=== PATIENT | male | born 1965 | race Caucasian/White ===

== ENCOUNTER 2017-03-19 13:58 | Emergency (ER) | payer OTHER ==
[~2017-03-19] VITALS: Ht 170.2 cm; Wt 81.8 kg
--- NOTE | 2017-03-19 14:05 | ED.REPORT ---
HPI-Seizure Date of Service March 19, 2017 ED Provider: Edwin Silveira MD 51 year old male with known seizure disorder status post TBI presents to the ER via EMS due to head injury status post witnessed seizure just prior to arrival. Witnesses report that patient began convulsing and fell to the ground without breaking his fall, striking his head on the pavement. Medics report 1-2 minutes of witnessed seizure activity upon their arrival. He states that he is prescribed Depakote but has not been taking it lately because he has been unable to afford it. Patient denies any anticoagulant use. Nursing Notes Stated Complaint: SEIZURES, HEAD INJURY Chief Complaint: Seizure Nursing Notes Reviewed: Yes Allergies: Coded Allergies: haloperidol (Verified Allergy, Intermediate, 03/19/17) Scheduled Phenytoin Sodium ER (Dilantin) 100 Mg Capsule 100 MG PO TID General Time Seen by Provider: 14:04 Chief Complaint Chief Complaint: Seizure, generalized Hx Obtained From: Patient, EMS Arrived By: Ambulance Onset Occurred: Just prior to arrival Location: : Head Quality: Painful Severity: Current: Moderate Severity: Maximum: Moderate Related History: Reports: Known seizure disorder Similar Sx Previous: Yes Risk-Seizure IC Bleed Risk Stratification No Blood thinners RF Statements: Risk factors reviewed Past Medical History Past Medical History TBI Reports: Seizure disorder Social History Alcohol Use: 1-3 per week Other Social History: From out of town, Homeless Review of Systems Musculoskeletal: Denies: Back pain, Extremity pain, Joint pain, Lumbar pain, Neck pain, Thoracic pain Neurologic: Reports: Headache, Seizure, Denies: Bladder dysfunction, Bowel dysfunction, Focal weakness, Slurred speech, Vision change, Weakness Complete sys rev & neg: except as marked. Physical Exam Initial Vital Signs Vital Signs (First) Date Time Temp Pulse Resp B/P Pulse Ox O2 Delivery O2 Flow Rate FiO2 03/19/17 14:06 37.0 118 20 158/89 95 Room Air Initial VS: Reviewed Abdomen / GI: Soft, Non-tender, No guarding, No rebound, No distention Extremities: Vascular intact, Neuro intact, No swelling, No tenderness Skin: Warm, Dry, No cyanosis General/Constitutional: Awake, Alert Neck: No meningismus, No swelling, Non-tender, No tracheal deviation Trauma - Neck Specific: Positive: Immobilized - C Collar Respiratory / Chest: Breath sounds NL, Breath sounds = bilat, No respiratory distress, No rales, No rhonchi, No wheezing Cardiovascular: Heart rate NL, Regular rhythm, Heart sounds NL, Peripheral circulation NL Neurologic: Oriented X3, Speech NL, No motor deficits, No sensory deficits, CN II - XII intact Head / Eyes: Normocephalic, PERRL Superficial abrasion right parietal region, no active bleeding. ENT: Airway patent, Mucous membranes moist, Gums/dentition NL Superficial abrasion to the right lower lip. Interpretation & Diagnostics Lab Results Interpretation Test 03/19/17 14:21 Valproic Acid (Depakene) Level < 3ug/mL (50-125) CT Head Interpretation IMPRESSION: Right parietal scalp swelling/laceration. Age-indeterminate bilateral nasal bone fractures. No acute intracranial process. Chronic appearing left anterior temporal lobe and anterior bifrontal lobe encephalomalacia presumably from remote prior trauma Dictated by: Bud Cervantes M.D. on 03/19/2017 at 14:54 Approved by: Bud Cervantes M.D. on 03/19/2017 at 14:57 Study: Head CT no contrast Interpretation / Wet Read by: Interpret - Radiologist CT C-Spine Interpretation IMPRESSION: 1. No acute cervical fractures are suspected. However, mild motion artifact through the lower cervical region does result in difficulty evaluating for subtle nondisplaced fractures. 2. Moderate multilevel degenerative changes of the cervical spine are more prominent involving the lower cervical levels. Dictated by: Antonio Chicas M.D. on 03/19/2017 at 13:54 Approved by: Antonio Chicas M.D. on 03/19/2017 at 14:01 Study type: CT no contrast Interpretation / Wet Read by: Interpret - Radiologist Re-Eval/Medical Decision Med Decision/Clinical Course 51-year-old male history of TBI and subsequent seizure disorder presenting status post, will fall with seizure and hitting head. This was witnessed by bystanders. He reports he has not been taking his seizure medications due to cost. He does have a superficial abrasion in his right posterior scalp. CT head and C-spine were negative. He was no longer post ictal and was observed with no further seizure activity. I discussed him with neurologist and given he is new to the area he will follow-up with them and a primary doctor. Dr. Lee recommended he be started on Dilantin given lower cost with level check in 2 weeks per primary doctor. Patient was given a prescription for this and a number to call to establish care with primary doctor and to establish care with neurology. Return precautions given. Consultation : Referral / Consult Name: Dacia Ortega MD Consulted With: Neurology Call Returned at: 14:31 Note: Dilantin 1000mg here, 300mg daily with follow-up in 2 weeks. Counseled Regarding: Diagnosis, Lab results, Need for follow-up, When/why to return to ED Discharge & Departure Impression: Primary Impression: Seizure Disposition: Home Discharge Condition All VS Reviewed: Yes Condition: Stable Additional Instructions: Your evaluation today is reassuring. Your CT's do not indicate any fractures, bleeding in your brain, or any other dangerous cause for your symptoms. Take the Dilantin as prescribed; 300mg daily. You were given 1000mg here in the emergency department today. Follow-up with the primary care provider at the number provided in 1-2 days. They will set you up with a primary doctor. Follow-up with Dr. Ortega, Neurology, at the number provided to arrange an appointment for two weeks from now. Return to the ER if you have another seizure, or you develop new or worsening head pain, neck pain, numbness/weakness, difficulty speaking/swallowing, nausea , vomiting, or any other concerning symptoms. Referrals: Dacia Ortega MD [facility] Scribe Attestation Portions of this note were transcribed by Patrice Beth. I, Dr. Silveira, personally performed the history, physical exam and medical decision-making; I reviewed and confirmed the accuracy of the information in the transcribed note. Signed by: Joanna Lira, 03/19/2017 at 15:02 copies to: Dacia Ortega MD; [facility] Edwin Silveira MD March 19, 2017 14:05 PATRICE BETH March 19, 2017 14:12
[2017-03-19 14:06] VITALS: BP 158/89; PULSE 118; RESP 20; O2SAT 95
[2017-03-19] MEDS ORDERED: 0.9% Sodium Chloride 1,000 ML IV ONE (14:15)
[2017-03-19] MEDS ORDERED: Phenytoin 100 mg ER Capsule PO ONE (14:35)
[2017-03-19] MEDS ORDERED: PHN100C PO (14:50)
--- NOTE | 2017-03-19 14:59 | DRSVH ---
PROCEDURE: CT BRAIN WITHOUT CONTRAST ([id number]) INDICATIONS: trauma TECHNIQUE: Noncontrast 4.5 mm thick angled axial sections acquired from the foramen magnum to the vertex, with c oronal reformats. COMPARISON: None. FINDINGS: Image quality: Excellent. CSF spaces: Basal cisterns are patent. No extra-axial fluid collections. Ventricles are normal in size and shape. Brain: No midline shift. There is mild anterior bifrontal and anterior left temporal lobe encephalom alacia presumably from remote prior trauma. No intracranial masses or hemorrhage. Hanson-white matter interface is normal. Skull and face: Plate-screw fixation of the anterior wall of the right maxillary sinus. Age-indeterm inate bilateral nasal bone fractures. There is right parietal scalp swelling and laceration Sinuses: Mild left maxillary mucosal thickening and small amount of fluid. The mastoids are clear. IMPRESSION: Right parietal scalp swelling/laceration. Age-indeterminate bilateral nasal bone fractures. No acute intracranial process. Chronic appearing left anterior temporal lobe and anterior bifrontal lobe encephalomalacia presumably from remote prior trauma Dictated by: Bud Cervantes M.D. on 03/19/2017 at 14:54 Approved by: Bud Cervantes M.D. on 03/19/2017 at 14:57
--- NOTE | 2017-03-19 15:02 | DRSVH ---
PROCEDURE: CT CERVICAL SPINE WITHOUT CONTRAST ([id number]) INDICATIONS: trauma TECHNIQUE: Noncontrast 3 mm thick sections acquired from the skull base to the T4 level. Sagittal and coronal r eformats were then constructed. For radiation dose reduction, the following was used: automated exp osure control, adjustment of mA and/or kV according to patient size. COMPARISON: None. FINDINGS: Image quality: Suboptimal related to motion artifact extending from C6-T2. Subtle abnormalities is m aybe missed within this region. Bones: The craniocervical and atlantoaxial joints are well-maintained. The odontoid is intact. The vertebral body heights and prevertebral soft tissues are within normal limits throughout the cervical spine without evidence to suggest acute compression fracture. No other fractures are evident within the cervical spine. The bone mineralization is within normal limits. Moderate multifocal degenerative changes are evident throughout the mid to lower cervical spine with prominent disc height loss, posterior disc osteophyte complex, facet arthropathy, most pronounced at the level of C6-7. Soft tissues: No prevertebral soft tissue swelling. The imaged lung apices are clear. Imaged porti ons of the mediastinum are unremarkable. Incidental note is made of a small metallic density within the right sternocleidomastoid muscle. Otherwise, the remainder of the imaged soft tissues of the neck are within normal limits. IMPRESSION: 1. No acute cervical fractures are suspected. However, mild motion artifact through the lower cervi mellissa region does result in difficulty evaluating for subtle nondisplaced fractures. 2. Moderate multilevel degenerative changes of the cervical spine are more prominent involving the l ower cervical levels. Dictated by: Antonio Chicas M.D. on 03/19/2017 at 13:54 Approved by: Antonio Chicas M.D. on 03/19/2017 at 14:01
[2017-03-19] MEDS ORDERED: 0.9% Sodium Chloride 500 ML IV ONE (15:40)
[2017-03-19 16:05] VITALS: BP 143/74; PULSE 104; RESP 23; O2SAT 92
[2017-03-19 16:51] VITALS: BP 143/74; PULSE 104; RESP 23; O2SAT 92
== END 2017-03-19 16:53 | disposition home or self-care (01) ==
LOC: EDBD 13:58 → SED 13:58
DX: R56.9 Unspecified convulsions (principal); S09.8XXA Other specified injuries of head, initial encounter; W01.198A Fall on same level from slipping, tripping and stumbling with subsequent striking against other object, initial encounter; Y93.9 Activity, unspecified; Y92.480 Sidewalk as the place of occurrence of the external cause; Y99.8 Other external cause status; Z59.0 Homelessness; Z88.8 Allergy status to other drugs, medicaments and biological substances
CPT/HCPCS: 36415; 70450; 72125; 80164; 96361; 96374; 99285; J1885; J7030; J7040